=== PATIENT | female | born 1950 | race Hispanic/Latino ===

== ENCOUNTER 2019-11-03 05:59 | Observation (INO) | payer MEDICARE, OTHER ==
--- NOTE | 2019-10-29 12:12 | Diagnostic Imaging Report ---
Chest, 2 views, 10/29/2019. History: Preop, knee surgery. Comparison: None available. Findings: The cardiomediastinal silhouette and pulmonary vasculature are within normal limits. The lungs are clear without evidence of consolidation or pleural effusion. There are no acute osseous or soft tissue abnormalities. Impression: No acute cardiopulmonary abnormality. Signed by: Austin Montalvo on 10/29/2019 12:09 PM
[~2019-11-03] VITALS: Ht 160 cm; Wt 92.1 kg
[~2019-11-03 05:59] MED LIST: LEVOTHYROXINE100 MC1 PO; LIPITOR10 MG PO
[2019-11-03] MEDS ORDERED: DEXAMETHASONE SOD PHOS 10 MG/1 ML VIAL ONE (06:27)
[2019-11-03] MEDS ORDERED: CELECOXIB 200 MG CAP ONE (06:27)
[2019-11-03] MEDS ORDERED: GABAPENTIN 300 MG CAP ONE (06:28)
[2019-11-03] MEDS ORDERED: CEFAZOLIN SOD 1 GM/NS 50ML 100 ML IV ONE (06:28)
[2019-11-03] MEDS ORDERED: VANCOMYCIN HCL 500 MG ONE (06:35)
[2019-11-03] MEDS ORDERED: TRANEXAMIC ACID 1,000 MG/10 ML ML ONE (06:36)
[2019-11-03 07:12] LABS: BASOPHILS # (AUTO) 0.1 (0.0-0.1); BASOPHILS % 0.9 % (0.0-1.0); EOSINOPHILS # (AUTO) 0.2 (0.0-0.4); EOSINOPHILS % 2.5 % (0.0-6.0); HEMATOCRIT 38.3 % (34.2-44.1); HEMOGLOBIN 12.3 g/dL (12.0-16.0); LYMPHOCYTES # (AUTO) 2.1 (1.0-3.2); LYMPHOCYTES % 27.5 % (18.0-39.1); MEAN CORPUSCULAR HEMOGLOBIN 29.4 pg (28-32); MEAN CORPUSCULAR HGB CONC 32.1 g/dL (31-35); MEAN CORPUSCULAR VOLUME 91.6 fL (81-99); MONOCYTES # (AUTO) 0.4 (0.2-0.8); MONOCYTES % 5.7 % (4.4-11.3); NEUTROPHILS # (AUTO) 4.7 (2.1-6.9); NEUTROPHILS % 62.9 % (38.7-80.0); PLATELET COUNT 200 x10e3/uL (140-360); RED BLOOD COUNT 4.18 x10e6/uL (3.6-5.1); RED CELL DISTRIBUTION WIDTH 13.2 % (11.7-14.4)
[2019-11-03] MEDS ORDERED: ROPIVACAINE 246.25 MG, EPINEPHRINE HCL 1:1000 1ML 0.5 MG, CLONIDINE HCL 0.08 MG, KETORO... INJ ONE ×5 (08:00)
[2019-11-03] MEDS ORDERED: HYDROCODONE/APAP 5MG-325MG TAB PO PRN (09:30)
[2019-11-03] MEDS ORDERED: SODIUM CHLORIDE 0.9% 1000ML 1,000 ML IV SCH (09:30)
[2019-11-03] MEDS ORDERED: DIPHENHYDRAMINE HCL INJ 50 MG/ML VIAL IV PRN (09:30)
[2019-11-03] MEDS ORDERED: ZOLPIDEM TARTRATE 5 MG TAB PO PRN (09:30)
[2019-11-03] MEDS ORDERED: ACETAMINOPHEN 650 MG SUPP PR PRN (09:30)
[2019-11-03] MEDS ORDERED: KETOROLAC TROMETHAMINE 30 MG/ML VIAL IV PRN (09:30)
[2019-11-03] MEDS ORDERED: ONDANSETRON HCL INJ 2MG/ML 2ML 2 MG/ML VIAL IV PRN (09:30)
[2019-11-03] MEDS ORDERED: DOCUSATE SODIUM 100 MG CAP PO PRN (09:30)
[2019-11-03] MEDS ORDERED: HYDROCODONE/APAP 7.5MG-325MG 1 EA TAB PO PRN (09:30)
--- NOTE | 2019-11-03 10:19 | Diagnostic Imaging Report ---
Radiographs of the left knee HISTORY: Pain. Postop COMPARISON: None available. FINDINGS: Bones: No acute displaced fracture. Osseous alignment is within normal limits. Joints: Patient is status post left knee replacement with associated postsurgical change. The surgical hardware is intact without evidence of failure or loosening. Soft tissues: The soft tissues appear unremarkable. IMPRESSION: Patient is status post left knee replacement with associated postsurgical change. The surgical hardware is intact without evidence of failure or loosening. Signed by: Dr. Ajit Augustin M.D. on 11/03/2019 10:15 AM
[2019-11-03] MEDS ORDERED: FENTANYL CITRATE/PF 100MCG/2 ML INJ ONE ×2 (10:49→18:39)
--- NOTE | 2019-11-03 11:56 | NUR ---
Received report from PAL Phan in recovery at 1154. Awaiting patient arrival from PACU. Addendum: 11/03/19 at 1322 by Lis Mcguire RN Patient arrived to floor at 1200. Patient was oriented to room, procedures, and plan of care. Patient was assessed and has a left hand 20g. She is S/L and on a regular diet s/p surgery. Patient has call light within reach and no other issues. Dr. Shirley continued home meds and is aware of patient being to the floor now.
[2019-11-03 12:12] VITALS: BP 111/75
[2019-11-03 12:27] LABS: BASOPHILS % 0.3 % (0.0-1.0); HEMATOCRIT 35.4 % (34.2-44.1); HEMOGLOBIN 11.6 g/dL (12.0-16.0); LYMPHOCYTES # (AUTO) 0.9 (1.0-3.2); LYMPHOCYTES % 7.8 % (18.0-39.1); MEAN CORPUSCULAR HEMOGLOBIN 29.1 pg (28-32); MEAN CORPUSCULAR HGB CONC 32.8 g/dL (31-35); MEAN CORPUSCULAR VOLUME 88.9 fL (81-99); MONOCYTES # (AUTO) 0.1 (0.2-0.8); MONOCYTES % 0.9 % (4.4-11.3); NEUTROPHILS # (AUTO) 10.6 (2.1-6.9); NEUTROPHILS % 90.5 % (38.7-80.0); PLATELET COUNT 225 x10e3/uL (140-360); RED BLOOD COUNT 3.98 x10e6/uL (3.6-5.1); RED CELL DISTRIBUTION WIDTH 13.1 % (11.7-14.4)
[2019-11-03] MEDS ORDERED: ACETAMINOPHEN 1000 MG/100 ML IV PRN (14:00)
--- NOTE | 2019-11-03 14:42 | NUR ---
DR GRIDER OFFICE PREARRANGED FOLLOWING DISCHARGE PLAN OF:[address] [id number] [facility] CONFIRMED WITH [employer] [phone] DME 3 IN ONE COMMODE AND 3 IN 1 PROVIDED BY [employer] HOUSE PER BOB [phone] I ISSUED A ROLLING WALKER WITH WHEELS OBTAINED SIGNATURES AND FILED IN [employer] SIGNED AND ON CHART COPY LEFT WITH PATIENT GAVE CARD FOR QUESTIONS AND OR CONCERNS.
[2019-11-03 15:38] VITALS: BP 116/70
[2019-11-03] MEDS ORDERED: SODIUM CHLORIDE 0.9% 250ML 250 ML ONE (18:25)
[2019-11-03] MEDS ORDERED: SEVOFLURANE INHAL SOLN 250 ML PEN BTL ONE (18:30)
[2019-11-03] MEDS ORDERED: PROPOFOL IV EMULSION 10 MG/ML 20 ML VIAL ONE (18:30)
[2019-11-03] MEDS ORDERED: LIDOCAINE HCL 2% LOCAL INJ 5 ML SDV VIAL INJ ONE (18:30)
[2019-11-03] MEDS ORDERED: ONDANSETRON HCL INJ 2MG/ML 2ML 2 MG/ML VIAL ONE (18:30)
[2019-11-03] MEDS ORDERED: EPINEPHRINE HCL 1:1000 1ML 1 MG/ML AMP ONE (18:31)
[2019-11-03] MEDS ORDERED: BUPIVACAINE HCL 0.5% INJ 30 ML VIAL INJ ONE (18:31)
[2019-11-03] MEDS: CEFAZOLIN SOD 1 GM/NS 50ML 50 ML IV SCH ×2 (18:37→23:41)
[2019-11-03] MEDS: ASPIRIN 325 MG TAB PO SCH (18:37)
[2019-11-03] MEDS: CELECOXIB 100 MG CAP PO SCH (18:37)
[2019-11-03] MEDS ORDERED: MIDAZOLAM HCL 2 MG/2 ML VIAL ONE (18:39)
--- NOTE | 2019-11-03 19:26 | NUR ---
Received change of shift report from AM nurse. Walking rounds completed.
[2019-11-03 20:00] VITALS: BP 123/72
--- NOTE | 2019-11-03 20:30 | NUR ---
Patient removed from CPM. Tolerated well at 45.
[2019-11-03] MEDS ORDERED: ATORVASTATIN 20 MG TAB PO SCH (21:00)
[2019-11-03] MEDS ORDERED: ATORVASTATIN 10 MG TAB PO SCH (21:00)
[2019-11-04] VITALS: BP 108/70
--- NOTE | 2019-11-04 | NUR ---
Patient c/o not being able to sleep. Meds given as ordered by MD.
[2019-11-04 04:00] VITALS: BP 113/64
--- NOTE | 2019-11-04 05:00 | NUR ---
Patient slept well with sleep med. Up to bathroom with asst and walker. Patient did well.
[2019-11-04 05:37] LABS: HEMOGLOBIN 11.2 g/dL (12.0-16.0)
[2019-11-04] MEDS ORDERED: LEVOTHYROXINE SODIUM 100 MCG TAB PO SCH (06:00)
--- NOTE | 2019-11-04 06:00 | NUR ---
Patient placed back on CPM. at 45 for now.
[2019-11-04 09:02] VITALS: BP 129/80
[2019-11-04] MEDS: ASPIRIN 325 MG TAB PO SCH (09:12)
[2019-11-04] MEDS: CELECOXIB 100 MG CAP PO SCH (09:12)
[2019-11-04] MEDS: CEFAZOLIN SOD 1 GM/NS 50ML 50 ML IV SCH (09:12)
[2019-11-04] MEDS ORDERED: ONDANSETRON HCL 4 MG ORAL DISINTEGRATING TAB PO PRN (09:15)
[2019-11-04 10:05] VITALS: BP 129/80
--- NOTE | 2019-11-04 11:00 | Consultation ---
DATE OF CONSULTATION: 11/04/2019 REASON FOR CONSULTATION: Postop medical management. HISTORY OF PRESENT ILLNESS: The patient is a 69-year-old lady, who is status post left knee arthroplasty, doing well postoperatively with minimal pain. Denies any chest pain, fever, chills, nausea, vomiting, headache, or shortness of breath on review of systems. PAST MEDICAL HISTORY: Hypothyroidism and hyperlipidemia. PAST SURGICAL HISTORY: Gallbladder and hysterectomy. MEDICATIONS: See MAR. ALLERGIES: NONE. SOCIAL HISTORY: Nonsmoker. , lives at home. Nondrinker. FAMILY HISTORY: High blood pressure. PHYSICAL EXAMINATION: VITAL SIGNS: Temperature 98.5, pulse 93, blood pressure 108/70, 98% on room air. GENERAL: No apparent distress, lying in bed. NECK: Supple. CARDIOVASCULAR: Regular rate and rhythm. LUNGS: Clear to auscultation bilaterally. ABDOMEN: Good bowel sounds. Soft and nontender. EXTREMITIES: No clubbing or cyanosis. Left knee is bandaged. No seepage. NEUROLOGIC: Nonfocal. ASSESSMENT/PLAN: 1. Left knee pain. Continue with postoperative care and physical therapy. 2. Anemia. Check a CBC. 3. Hypothyroidism. Continue with thyroid medicine. 4. Hyperlipidemia. Continue with her Lipitor 20 mg a day. Please see hospital chart for full details. MD HAO Monsalve/VAL /[id number]
--- NOTE | 2019-11-04 11:15 | NUR ---
Discharge education provided with discharge packet. Verbalized understanding. PIV to left hand discontinued, catheter intact. no bleeding noted. Awaiting for warehouse picker.
--- NOTE | 2019-11-04 12:15 | NUR ---
Transported patient via wheelchair to private vehicle with all personal belongings taken by the son including walker to use at home.
[2019-11-04 13:07] VITALS: BP 116/80
--- NOTE | 2019-11-09 22:38 | Operative Report ---
DATE OF PROCEDURE: 11/03/2019 SURGEON: Edy Patel MD TOOL BUILDER: Bert Ambrocio, certified PA. PREOPERATIVE DIAGNOSIS: Osteoarthritis, left knee. POSTOPERATIVE DIAGNOSIS: Osteoarthritis, left knee. PROCEDURE: Left total knee arthroplasty. INDICATIONS: The patient is a 69-year-old lady, who has end-stage arthritis in her left knee. She has failed conservative management and would like to proceed with a left total knee replacement. The risks and benefits of the surgery were discussed. All of her questions were answered. The implants, the hospital stay, and the recovery have been extensively discussed. She states she understands and wishes to proceed. PROCEDURE IN DETAIL: The patient was brought to the operating room and placed under general anesthetic. She received prophylactic antibiotics, a tranexamic acid and a regional block in the holding area. Her left lower extremity was prepped and draped in a sterile manner. A preoperative time-out was performed. The extremity was exsanguinated and a proximal tourniquet was inflated to 300 mmHg. An anterior approach with a medial parapatellar arthrotomy was performed. Clear synovial fluid was removed from the joint. Soft tissue releases were performed to bring the knee up into flexion with the patella everted. Marginal osteophytes, meniscal remnants, and cruciate ligaments were sacrificed. A [employer] and [employer] knee system were used throughout the case. An extramedullary cutting guide was used to resect the proximal tibia. The tibial base plate was a size 3. The central fin punch was impacted and an attention was directed towards the distal femur. An intramedullary cutting guide was used to resect the distal femur in 6 degrees of valgus and rotation referencing off a combination of landmarks including Whitesides line, the epicondylar axis, and the posterior condyles. The femoral component was a size 5. The anterior and posterior cuts were made. A trial reduction was performed. A 9 mm ultracongruent tibial insert provided appropriate soft tissue balancing in both flexion and extension. The patella was resurfaced with a 29 mm x 9 mm patellar button. The thickness was checked before and after and was right around 21 mm. Patellar tracking was noted to be concentric. The trial implants were then all removed. A 100 mL premixed pericapsular PAULINO injection was placed into the surrounding soft tissue. The knee was thoroughly irrigated with a shower tip pulsatile lavage. The components were cemented into place using a single mix of high viscosity Biomet cement preloaded with antibiotics. Care was taken to remove all extravasated cement. The wound was further irrigated while the cement cured. The arthrotomy was closed after sprinkling 500 mg of vancomycin powder deep into the wound. The knee was put through flexion and extension to ensure a secure closure of the arthrotomy. The skin was closed with subcuticular Vicryl and tariq. A sterile Aquacel bandage was applied. The patient was extubated and transported to the recovery room in stable condition. Blood loss was minimal. All needle and sponge counts were correct. Edy Patel MD DR/VAL /[id number]
== END 2019-11-04 12:15 | disposition home health service (06) ==
LOC: OR 05:59 → PACU V 09:19 → MED/SURG 11:59
PROVIDERS: ADMIT Specialist; ATTEND Specialist
DX: M17.12 Unilateral primary osteoarthritis, left knee (principal); E78.00 Pure hypercholesterolemia, unspecified; E03.9 Hypothyroidism, unspecified; Z11.59 Encounter for screening for other viral diseases; D64.9 Anemia, unspecified; E78.5 Hyperlipidemia, unspecified; Z90.49 Acquired absence of other specified parts of digestive tract; Z82.49 Family history of ischemic heart disease and other diseases of the circulatory system; Z83.79 Family history of other diseases of the digestive system; Z01.810 Encounter for preprocedural cardiovascular examination; Z01.812 Encounter for preprocedural laboratory examination; Z01.818 Encounter for other preprocedural examination
CPT/HCPCS: 27447; 36415 ×2; 71046; 73560; 85014; 85018; 85025; 86850; 86900; 86920; 93005; 97116 ×2; 97161; 97530; C1713; G0378 ×2; J0171; J0690 ×2; J1100; J1885; J2001; J2250; J2405; J2704; J2795; J3010; J3370; J7050; U0002